=== PATIENT | male | born 1985 | race Two or more races ===

== ENCOUNTER 2021-08-26 22:02 | Emergency (ER) | payer MEDICAID ==
[~2021-08-26] VITALS: Ht 185.4 cm; Wt 79.0 kg
[2021-08-27] MEDS ORDERED: HYDROCODONE/ACETAMINOPHEN 5/325MG TABLET PO ONE (03:15)
[2021-08-27 03:22] VITALS: BP 125/85
[2021-08-27 03:36] LABS: CLARITY URINE CLEAR (CLEAR); COLOR URINE DARK YELLOW (YELLOW); KETONES URINE TRACE (NEGATIVE); LEUKOCYTE ESTERASE URINE NEGATIVE (NEGATIVE); NITRITE URINE NEGATIVE (NEGATIVE); OCCULT BLOOD URINE NEGATIVE (NEGATIVE); PH URINE 5.5 (4.5-8.0); PROTEIN URINE TRACE (NEGATIVE); SPECIFIC GRAVITY URINE 1.033 (1.005-1.030)
[2021-08-27 03:36] LABS: EOSINOPHILS % 2.6 % (0.0-5.0); HEMATOCRIT. 42.6 % (42.0-52.0); HEMOGLOBIN. 14.4 g/dL (14.0-18.0); LYMPHOCYTES % 38.5 % (20.0-50.0); MEAN CORPUSCULAR HEMOGLOBIN 29.4 pg (28.0-32.0); MEAN CORPUSCULAR VOLUME 86.9 fL (80.0-94.0); MEAN PLATELET VOLUME 7.7 fl (7.4-10.4); MONOCYTES % 10.6 % (2.0-8.0); NEUTROPHILS % 47.3 % (40.0-76.0); PLATELET 279 x1000/uL (130-400); RED CELL DISTRIBUTION WIDTH 13.1 % (11.6-14.6)
[2021-08-27 03:42] LABS: CHLORIDE 106 mEq/L (98-107)
[2021-08-27] MEDS ORDERED: POLY17PO3 MT (06:25)
== END 2021-08-27 06:35 | disposition home or self-care (01) ==
LOC: ER 22:02
DX: R10.32 Left lower quadrant pain (principal); G89.29 Other chronic pain; M25.552 Pain in left hip; K56.41 Fecal impaction; Z79.899 Other long term (current) drug therapy
CPT/HCPCS: 36415; 74176; 80053; 81003; 85025; 99284

== ENCOUNTER 2021-12-23 20:57 | Emergency (ER) | payer MEDICAID ==
[~2021-12-23] VITALS: Ht 180.3 cm; Wt 82.0 kg
[~2021-12-23 20:57] MED LIST: POLY17PO3 MT
[2021-12-23 21:40] VITALS: BP 116/81
[2021-12-23] MEDS ORDERED: DOXY100T2 MT (23:07)
[2021-12-24 00:05] LABS: *AMPHETAMINES SCREEN URINE PRESUMTIVE POSITIVE (NEGATIVE); *BARBITURATES SCREEN URINE NEGATIVE (NEGATIVE); CANNABINOID URINE SCREEN NEGATIVE (NEGATIVE); PHENCYCLIDINE URINE SCREEN NEGATIVE (NEGATIVE)
[2021-12-24 00:06] LABS: *BENZODIAZEPINES SCREEN URINE NEGATIVE (NEGATIVE); *COCAINE SCREEN URINE NEGATIVE (NEGATIVE); METHADONE URINE SCREEN NEGATIVE (NEGATIVE); OPIATES URINE SCREEN NEGATIVE (NEGATIVE)
== END 2021-12-23 23:59 | disposition home or self-care (01) ==
LOC: ER 20:57
DX: L02.211 Cutaneous abscess of abdominal wall (principal); M19.90 Unspecified osteoarthritis, unspecified site
CPT/HCPCS: 80305; 87070; 87077; 87186; 99283